=== PATIENT | male | born 1955 | race African-American/Black ===

== ENCOUNTER 2020-01-16 18:10 | Inpatient (IN) | payer MEDICAID ==
[~2020-01-16] VITALS: Ht 180.3 cm; Wt 107.8 kg
[2020-01-16] MEDS ORDERED: SCOT-TUSSI10 MG/5 ML PO (18:17)
[2020-01-16] MEDS ORDERED: XALATAN 0.0052.5 ML EACH EYE (18:18)
[2020-01-16] MEDS ORDERED: TIMOPTIC 0.5 % O5 ML EACH EYE (18:18)
[2020-01-16] MEDS ORDERED: [UNRECOGNIZED DRUG - OTHER] PO (18:18)
[2020-01-16] MEDS ORDERED: LIPITOR40 MG PO (18:18)
[2020-01-16] MEDS ORDERED: FERROUS SULFAT325 MG PO (18:19)
[2020-01-16] MEDS ORDERED: LOXAPINE50 MG PO (18:19)
[2020-01-16] MEDS ORDERED: ENSURE PO (18:19)
[2020-01-16] MEDS ORDERED: CLARITIN 10 MG10 MG PO (18:19)
[2020-01-16] MEDS ORDERED: NOVOLIN 70/30 110 ML SC ×3 (18:20)
[2020-01-16] MEDS ORDERED: NORVASC10 MG PO (18:21)
[2020-01-16] MEDS ORDERED: COREG25 MG PO (18:21)
[2020-01-16] MEDS ORDERED: FUROSEMIDE40 MG PO (18:21)
[2020-01-16] MEDS ORDERED: ASPIRIN81 MG PO (18:21)
[2020-01-16] MEDS ORDERED: SODIUM BICARBO650 MG PO (18:22)
[2020-01-16] MEDS ORDERED: CELLCEPT500 MG PO (18:22)
[2020-01-16] MEDS ORDERED: TACROLIMUS ANHYD1 MG PO (18:22)
[2020-01-16] MEDS ORDERED: ABSORBASE (18:22)
[2020-01-16 19:01] VITALS: BP 119/71
[2020-01-16 19:03] LABS: BASOPHILS 0 % (0-2); EOSINOPHILS 1.5 % (0-7); HEMATOCRIT 27.8 % (42.0-54.0); HEMOGLOBIN 8.4 g/dL (13.5-17.5); IMMATURE GRANULOCYTES 0.3 % (0-5); LYMPHOCYTES 21.4 % (15-50); MCH 21.7 pg (26.0-34.0); MCHC 30.2 g/dL (31.0-37.0); MCV 71.8 fL (80.0-100.0); NEUTROPHILS 67.8 % (40-80); PLATELET COUNT 178 10x3/uL (130-400); RBC 3.87 10x6/uL (4.20-6.10); WBC 3.2 10x3/uL (4.8-10.8)
[2020-01-16 19:19] LABS: APTT 28.1 SECONDS (22.8-39.4); CALC OSMOLALITY 277 mosm/kg (275-300); CALCIUM 8.2 mg/dL (8.5-10.1); CARBON DIOXIDE 27.9 mmol/L (21.0-32.0); CHLORIDE - SERUM 99 mmol/L (98-107); CREATININE - SERUM 3.3 mg/dL (0.6-1.3); GLUCOSE 166 mg/dL (74-106); INR 1.14 (0.85-1.17); POTASSIUM - SERUM 3.6 mmol/L (3.5-5.1); PROTIME 14.5 SECONDS (11.6-15.0); SODIUM 135 mmol/L (136-145); UREA NITROGEN 24 mg/dL (7-18); eGFR NON AFRICAN AMERICAN 20 mL/min (90-120)
[2020-01-16 19:34] LABS: ALBUMIN 3.1 g/dL (3.4-5.0); ALKALINE PHOSPHATASE 53 U/L (30-120); ALT (SGPT) 15 U/L (10-68); BILIRUBIN - TOTAL 0.55 mg/dL (0.2-1.3); CKMB 0.7 U/L (0.0-3.6); CREATINE KINASE 100 UL (21-232); MAGNESIUM - SERUM 1.7 mg/dL (1.8-2.4); PROTEIN - SERUM 6.3 g/dL (6.4-8.2); TROPONIN-I 0.036 ng/mL (0.000-0.060)
[2020-01-16 20:01] VITALS: BP 141/69
--- NOTE | 2020-01-16 20:43 | NUR ---
PT RESTING SUPINE POSITION, DENIES NEEDS. WILL CONTINUE TO MONITOR.
[2020-01-16 21:17] VITALS: BP 153/83
--- NOTE | 2020-01-16 21:20 | NUR ---
PROVIDED PT WITH TURKEY SANDWICH, SUGAR FREE JELLO, ICE WATER, AND DIET SPRITE. PT DENIES FURTHER NEEDS. NO SIGNS DISTRESS NOTED. WILL CONTINUE TO MONITOR.
[2020-01-16 22:00] VITALS: BP 157/84
--- NOTE | 2020-01-16 22:00 | NUR ---
PT ARRIVED TO ICU WITH GUARD. PATIENT PLEASANT, AND COOPERATIVE. MOBITZ II NOTED ON MONITOR. HEAD TO TOE ASSESSMENT COMPLETED. PT DENIES PAIN OR NEEDS AT THIS TIME. 02 DECRESED TO 90 APPLIED O2 AT 2 LITERS VIA NC. AFTER 5 MIN O2 SATURATIONS INCREASED TO 95%. RODRIGUEZ BROWNING AT BEDSIDE. WILL CONTINUE TO MONIOR.
[2020-01-16 22:34] VITALS: BP 177/93; BMI 33.2
[2020-01-16 23:00] VITALS: BP 172/81
[2020-01-17] VITALS (21 sets, daily range): BP systolic 140–193; BP diastolic 74–104; Ht 180.3 cm; Wt 107.8 kg
[2020-01-17 00:52] LABS: CKMB 0.4 U/L (0.0-3.6); CREATINE KINASE 85 UL (21-232); TROPONIN-I 0.034 ng/mL (0.000-0.060)
--- NOTE | 2020-01-17 01:00 | NUR ---
PT RESTING WITH EYES CLOSED. DENIES ANY NEEDS AT THIS TIME. PT IS ABLE TO SELF POSITION WITHOUT ANY DIFFICULTY. CALL LIGHT WITHIN REACH.
[2020-01-17 01:22] LABS: HEMATOCRIT 26.6 % (42.0-54.0)
--- NOTE | 2020-01-17 03:00 | NUR ---
REASSESSMENT COMPLETED. NO CHANGES NOTED. CALL LIGHT WITHIN REACH.
[2020-01-17 03:33] LABS: BASOPHILS 0 % (0-2); EOSINOPHILS 1.7 % (0-7); HEMATOCRIT 27.7 % (42.0-54.0); HEMOGLOBIN 8.3 g/dL (13.5-17.5); IMMATURE GRANULOCYTES 0.7 % (0-5); LYMPHOCYTES 23.8 % (15-50); MCH 21.3 pg (26.0-34.0); MCV 71.2 fL (80.0-100.0); MONOCYTES 7.3 % (2-11); NEUTROPHILS 66.5 % (40-80); PLATELET COUNT 148 10x3/uL (130-400); RBC 3.89 10x6/uL (4.20-6.10); RDW 18.6 % (11.5-14.5)
[2020-01-17 03:43] LABS: INR 1.25 (0.85-1.17); PROTIME 15.6 SECONDS (11.6-15.0)
[2020-01-17 03:52] LABS: APTT 34.2 SECONDS (22.8-39.4)
[2020-01-17 04:20] LABS: ALBUMIN 2.8 g/dL (3.4-5.0); ANION GAP 11.4 mmol/L (8-16); BILIRUBIN - TOTAL 0.46 mg/dL (0.2-1.3); CALCIUM 8.3 mg/dL (8.5-10.1); CARBON DIOXIDE 27.4 mmol/L (21.0-32.0); CREATININE - SERUM 3.9 mg/dL (0.6-1.3); MAGNESIUM - SERUM 1.8 mg/dL (1.8-2.4); PHOSPHOROUS 3.3 mg/dL (2.5-4.9); POTASSIUM - SERUM 3.8 mmol/L (3.5-5.1); PROTEIN - SERUM 5.8 g/dL (6.4-8.2)
[2020-01-17 04:25] LABS: % SATURATION 42 % (15-55); IRON 89 ug/dl (35-150); TOTAL IRON BIND CAPACITY 211 ug/dl (260-445); UNSAT IRON BIND CAPACITY 122 ug/dl (150-375)
--- NOTE | 2020-01-17 05:00 | NUR ---
VSS. GUARD AT BEDSIDE. DENIES NEEDS AT THIS TIME.
--- NOTE | 2020-01-17 07:25 | NUR ---
REPORT RECIEVED, SHIFT ASSESSMENT COMPLETE, PT IS ALERT AND ORIENTED, ON 2L NC WITH 97% O2 SAT. ALL PPP, VSS, GUARD AT BEDSIDE, CALL LIGHT IN REACH
--- NOTE | 2020-01-17 09:30 | NUR ---
SUSAN ALBA AT BEDSIDE, UPDATE GIVEN
--- NOTE | 2020-01-17 11:15 | NUR ---
REASSESSMENT COMPLETE, NO CHANGES NOTED, WILL CON'T TO MONITOR
[2020-01-17 11:55] LABS: HEMATOCRIT 25.5 % (42.0-54.0); HEMOGLOBIN 7.7 g/dL (13.5-17.5)
--- NOTE | 2020-01-17 13:00 | NUR ---
PT RESTING AT THIS TIME, VSS, CALL LIGHT IN REACH
--- NOTE | 2020-01-17 15:00 | NUR ---
REASSESSMENT COMPLETE, NO CHANGES NOTED, WILL CON'T TO MONITOR
--- NOTE | 2020-01-17 17:30 | NUR ---
DR. LOVE AT BEDSIDE, UPDATE GIVEN
[2020-01-17 18:35] LABS: HEMATOCRIT 27.8 % (42.0-54.0); HEMOGLOBIN 8.2 g/dL (13.5-17.5)
--- NOTE | 2020-01-17 19:00 | NUR ---
Head to toe assessment completed temp of 101.0 noted patient exhibits cough and states he has had a cough for a few days and has been taking Guaifenesin for the cough. States the cough is thick. States other inmates have also had simular cough symptoms. removed blankets, and decreased air in room. Pt hypertensive. paged Efe PERKINS. provided update on condition. stated to call renal. Paged Renal ARPN x3 times without return call. will continue with nursing interventions.
--- NOTE | 2020-01-17 21:00 | NUR ---
temp at 99.5. will continue with interventions. Pt continues to be hypertensive. no s/s of distress noted. guard at bedside.
--- NOTE | 2020-01-17 23:00 | NUR ---
Head to toe assessment completed. No changes noted. Call light within reach. Patient resting with eyes closed with guard at bedside.
[2020-01-18] VITALS (10 sets, daily range): BP systolic 148–188; BP diastolic 82–121
--- NOTE | 2020-01-18 03:00 | NUR ---
reassessment completed. pt denies any needs at this time.
[2020-01-18 03:34] LABS: BASOPHILS 0 % (0-2); EOSINOPHILS 2.1 % (0-7); HEMATOCRIT 26.9 % (42.0-54.0); HEMOGLOBIN 8.2 g/dL (13.5-17.5); IMMATURE GRANULOCYTES 0.6 % (0-5); LYMPHOCYTES 28.2 % (15-50); MCH 21.9 pg (26.0-34.0); MCHC 30.5 g/dL (31.0-37.0); MCV 71.7 fL (80.0-100.0); MONOCYTES 9.1 % (2-11); RBC 3.75 10x6/uL (4.20-6.10); WBC 3.3 10x3/uL (4.8-10.8)
[2020-01-18 03:35] LABS: PLATELET COUNT 182 10x3/uL (130-400)
[2020-01-18 03:44] LABS: ALBUMIN 2.9 g/dL (3.4-5.0); ANION GAP 11.3 mmol/L (8-16); BILIRUBIN - TOTAL 0.58 mg/dL (0.2-1.3); CALCIUM 8.5 mg/dL (8.5-10.1); CARBON DIOXIDE 27.7 mmol/L (21.0-32.0); MAGNESIUM - SERUM 1.8 mg/dL (1.8-2.4); PHOSPHOROUS 4.1 mg/dL (2.5-4.9); PROTEIN - SERUM 5.7 g/dL (6.4-8.2)
[2020-01-18 03:48] LABS: CREATININE - SERUM 5.1 mg/dL (0.6-1.3)
--- NOTE | 2020-01-18 05:00 | NUR ---
provided pt with bath basin, and bath supplies.
--- NOTE | 2020-01-18 07:20 | NUR ---
REPORT RECEIVED, SHIFT ASSESSMENT COMPLETE, PT IS ALERT AND ORIENTED, ON 2L NC WITH 97% O2 SAT. ALL PPP, VSS, CALL LIGHT IN REACH
--- NOTE | 2020-01-18 12:40 | NUR ---
Nutrition Follow-up: Noted plans for HD today. BP elevated. Diet: Diabetic Wt: 237.6# (01/16) Labs noted: K+ 4.0, Glu 111, PO4 4.1, Alb 2.9 Meds noted: Ferrous Sulfate, Pepcid, Humulin -Change to cardiac diabetic diet. -RD following.
--- NOTE | 2020-01-18 13:02 | MORECARE ---
CASE MANAGEMENT DISCHARGE SUMMARY PATIENT: DRISS HARRINGTON UNIT: [id number] ADM DATE: 01/16/20 AGE: 64 : 53 SEX: M ROOM/BED: D.2308 AUTHOR: ISAURA YOUNG PHYSICIAN: REFERRING PHYSICIAN: CHRISTINA MAGANA MD DATE OF SERVICE: 01/18/20 Discharge Plan Patient Name: DRISS HARRINGTON Facility: [facility]:[place] : 1955 Planned Disposition: Court\Law Enforcement Anticipated Discharge Date: Discharge Date: Expected LOS: Initial Reviewer: [email or web address] Initial Review Date: 01/16/2020 Generated: 01/18/20 2:01 pm Comments DCP- Discharge Planning Updated by [email or web address]: Elvi Moraes on 01/18/20 11:[address] Patient Name: DRISS HARRINGTON Admission Status: ER Accout number: [id number] Admission Date: 01-16-2020 : 1955 Admission Diagnosis:SYNCOPE AND COLLAPSE Attending: CHRISTINA MAGANA Current LOS: 2 Anticipated DC Date: Planned Disposition: Court\Law Enforcement Primary Insurance: MEDICAID SKILLED NURSING PENDING Discharge Planning Comments: PATIENT IS AN INMATE AT [facility] AND WILL BE RETURNING THERE UPON DISCHARGE. PATIENT HAS GUARD AT BEDSIDE. CM WILL CONTINUE TO FOLLOW AND ASSIST NEEDED WITH DISCHARGE PLANNING / NEEDS. Radial Arm Saw Operator: Elvi Moraes DCPIA - Discharge Planning Initial Assessment Updated by [email or web address]: Elvi Moraes on 01/18/20 12:54 pm * Is the patient Alert and Oriented? Yes * PCP [facility] * Pharmacy [facility] * Preadmission Environment Other * Other Environment ADC * Facility Name [facility] * ADLs Independent * List name and contact numbers for known caregivers / representatives who currently or will assist patient after discharge: [facility] * Verbal permission to speak to the caregivers and representatives has been obtained from the patient. N/A * Additional services required to return to the preadmission environment? No * Can the patient safely return to the preadmission environment? Yes * Has this patient been hospitalized within the prior 30 days at any hospital? No Patient Name: DRISS HARRINGTON Page [phone] at 1302 All edits/amendments must be made on the electronic document DICTATION DATE: 01/18/20 1301 PAPER COATING SUPERVISOR: DELVIS 01/18/20 1301 RPT#: [id number] DC DATE: STATUS: ADM IN [facility] [address] [place] [address] END OF REPORT
--- NOTE | 2020-01-18 13:47 | NUR ---
REPORT CALLED AND GIVEN TO ASHA ON MED 2.
--- NOTE | 2020-01-18 14:42 | NUR ---
PT RECIEVED FROM ICU ALERT AND ORIENTED X4. PT HAS GUARD IN TOW. NO S/S OF DISTRESS AT THIS TIME. BP-165/92 2L O2-96% TELE-93. PT BEING TRANSPORTED VIA WHEELCHAIR TO [facility]. WILL CONTINUE TO MONITOR.
--- NOTE | 2020-01-18 19:10 | NUR ---
BEDSIDE REPORT RECEIVED, PT CARE ASSUMED. INTRODUCED SELF AND WROTE NAME ON BOARD. PT LYING IN BED, WATCHING TV, AAOX4. DENIES ANY NEEDS AT THIS TIME. BED IN LOWEST POSITION, SR X2, CALL LIGHT WITHIN REACH. OFFICER AT BEDSIDE. WILL CONTINUE TO MONITOR.
[2020-01-19 00:40] VITALS: BP 147/82
[2020-01-19 05:04] LABS: BASOPHILS 0 % (0-2); EOSINOPHILS 1.2 % (0-7); HEMATOCRIT 28.3 % (42.0-54.0); HEMOGLOBIN 8.7 g/dL (13.5-17.5); IMMATURE GRANULOCYTES 0.5 % (0-5); LYMPHOCYTES 19.7 % (15-50); MCH 21.9 pg (26.0-34.0); MCHC 30.7 g/dL (31.0-37.0); MCV 71.1 fL (80.0-100.0); MONOCYTES 11.2 % (2-11); NEUTROPHILS 67.4 % (40-80); PLATELET COUNT 165 10x3/uL (130-400); RBC 3.98 10x6/uL (4.20-6.10); RDW 18.9 % (11.5-14.5); WBC 4.1 10x3/uL (4.8-10.8)
[2020-01-19 05:24] LABS: ALBUMIN 2.8 g/dL (3.4-5.0); ANION GAP 12.1 mmol/L (8-16); BILIRUBIN - TOTAL 0.75 mg/dL (0.2-1.3); CALCIUM 8.5 mg/dL (8.5-10.1); CARBON DIOXIDE 27.6 mmol/L (21.0-32.0); CREATININE - SERUM 4.3 mg/dL (0.6-1.3); MAGNESIUM - SERUM 1.8 mg/dL (1.8-2.4); PHOSPHOROUS 3.9 mg/dL (2.5-4.9); POTASSIUM - SERUM 3.7 mmol/L (3.5-5.1)
--- NOTE | 2020-01-19 08:00 | NUR ---
PT AWAKE AND ORIENTED, C/O SEVERE PAIN IN HIS RIGHT ARM D/T GOUT FLAIR UP (PTS WORDS). UPON EXAMINATION ARM IS SWOLLEN ENOUGH TO MAKE ARMBAND TOO TIGHT, CUT OFF. WILL REPLACE. SPOKE WITH SAURAV ALANIS ABOUT GOUT PAIN MEDICATION. SHE STATES SHE WILL ORDER. NO COMPLAINTS OR CONCERNS OTHER THAN THE STATED. GUARD AT BEDSIDE. CL IN REACH,SRX2, ALL QUESTIONS ANSWERED TO THE BEST OF MY ABILITY.
[2020-01-19 08:07] VITALS: BP 169/96
[2020-01-19] MEDS ORDERED: COREG12.5 MG PO (10:11)
--- NOTE | 2020-01-19 10:41 | NUR ---
INFOREMD PT THAT HE WOULD BE DISCHARGED BACK TO HIS FACILITY. PT IS AMICABLE BUT NOT THRILLED. CL IN REACH, SRX2, GUARD AT BEDSIDE.
--- NOTE | 2020-01-19 11:14 | MORECARE ---
CASE MANAGEMENT DISCHARGE SUMMARY PATIENT: DRISS HARRINGTON UNIT: [id number] ADM DATE: 01/16/20 AGE: 64 : 53 SEX: M ROOM/BED: D.2107 AUTHOR: ISAURA YOUNG PHYSICIAN: REFERRING PHYSICIAN: CHRISTINA MAGANA MD DATE OF SERVICE: 01/19/20 Discharge Plan Patient Name: DRISS HARRINGTON Facility: [facility]:[place] : 1955 Planned Disposition: Court\Law Enforcement Anticipated Discharge Date: Discharge Date: Expected LOS: Initial Reviewer: [email or web address] Initial Review Date: 01/16/2020 Generated: 01/19/20 12:13 pm Comments DCP- Discharge Planning Updated by [email or web address]: Azul Dean on 01/19/20 10:[address] PATIENT IS DISCHARGING BACK TO [facility], VERONICA PERKINS IS DOING DOC TO DOC. THE GUARDS WITH SET UP AND PROVIDE TRANSPORTATION. I HAVE FAXED ALL DC CLINICALS CM TO FOLLOW AND ASSIST NEEDED DCP- Discharge Planning Updated by [email or web address]: Elvi Moraes on 01/18/20 11:[address] Patient Name: DRISS HARRINGTON Admission Status: ER Accout number: [id number] Admission Date: 01-16-2020 : 1955 Admission Diagnosis:SYNCOPE AND COLLAPSE Attending: CHRISTINA MAGANA Current LOS: 2 Anticipated DC Date: Planned Disposition: Court\Law Enforcement Primary Insurance: MEDICAID ALF PENDING Discharge Planning Comments: PATIENT IS AN INMATE AT [facility] AND WILL BE RETURNING THERE UPON DISCHARGE. PATIENT HAS GUARD AT BEDSIDE. CM WILL CONTINUE TO FOLLOW AND ASSIST NEEDED WITH DISCHARGE PLANNING / NEEDS. Precision Lens Polisher: Elvi Moraes DCPIA - Discharge Planning Initial Assessment Updated by [email or web address]: Elvi Moraes on 01/18/20 12:54 pm * Is the patient Alert and Oriented? Yes * PCP ADC * Pharmacy ADC * Preadmission Environment Other * Other Environment ADC * Facility Name [facility] * ADLs Independent * List name and contact numbers for known caregivers / representatives who currently or will assist patient after discharge: [facility] * Verbal permission to speak to the caregivers and representatives has been obtained from the patient. N/A * Additional services required to return to the preadmission environment? No * Can the patient safely return to the preadmission environment? Yes * Has this patient been hospitalized within the prior 30 days at any hospital? No External Providers External Provider: [facility] Next Contact Date: Service Request Date: Service Type: Resolution: Reviewer: Comments: Last DP export: 01/18/20 12:02 p Patient Name: DRISS HARRINGTON Page [phone] at 1114 All edits/amendments must be made on the electronic document DICTATION DATE: 01/19/201112 SQL DATA ARCHITECT: DELVIS 01/19/20 1113 RPT#: [id number] DC DATE: STATUS: ADM IN [facility] [address] [place] [address] END OF REPORT
--- NOTE | 2020-01-19 12:33 | NUR ---
PATIENT SITTING IN BED CONSUMING NOON MEAL. PATIENT ALERT/ORIENTED, DISCHARGING TO HOME SOON. PAPER SCRUBS PROVIDED AT THIS TIME.
--- NOTE | 2020-01-19 12:38 | NUR ---
CALLED REPORT TO "MRS REED" AT FACILITY.
--- NOTE | 2020-01-19 14:34 | NUR ---
PT ESCORTED OUT VIA GUARD AND WHEELCAIR TO [facility].
--- NOTE | 2020-01-20 16:20 | MORECARE ---
CASE MANAGEMENT DISCHARGE SUMMARY PATIENT: DRISS HARRINGTON UNIT: [id number] ADM DATE: 01/16/20 AGE: 64 : 53 SEX: M ROOM/BED: D.2107 AUTHOR: ISAURA YOUNG PHYSICIAN: REFERRING PHYSICIAN: CHRISTINA MAGANA MD DATE OF SERVICE: 01/20/20 Discharge Plan Patient Name: DRISS HARRINGTON Facility: [facility]:[place] : 1955 Planned Disposition: Court\Law Enforcement Anticipated Discharge Date: Discharge Date: 01/19/2020 Expected LOS: 0 Initial Reviewer: [email or web address] Initial Review Date: 01/16/2020 Generated: 01/20/20 5:20 pm Comments DCP- Discharge Planning Updated by [email or web address]: Azul Dean on 01/19/20 10:[address] PATIENT IS DISCHARGING BACK TO [facility], VERONICA PERKINS IS DOING DOC TO DOC. THE GUARDS WITH SET UP AND PROVIDE TRANSPORTATION. I HAVE FAXED ALL DC CLINICALS CM TO FOLLOW AND ASSIST NEEDED DCP- Discharge Planning Updated by [email or web address]: Elvi Moraes on 01/18/20 11:[address] Patient Name: DRISS HARRINGTON Admission Status: ER Accout number: [id number] Admission Date: 01-16-2020 : 1955 Admission Diagnosis:SYNCOPE AND COLLAPSE Attending: CHRISTINA MAGANA Current LOS: 2 Anticipated DC Date: Planned Disposition: Court\Law Enforcement Primary Insurance: MEDICAID NURSING HOME PENDING Discharge Planning Comments: PATIENT IS AN INMATE AT [facility] AND WILL BE RETURNING THERE UPON DISCHARGE. PATIENT HAS GUARD AT BEDSIDE. CM WILL CONTINUE TO FOLLOW AND ASSIST NEEDED WITH DISCHARGE PLANNING / NEEDS. Molder Wax Ball: Elvi Moraes DCPIA - Discharge Planning Initial Assessment Updated by [email or web address]: Elvi Moraes on 01/18/20 12:54 pm * Is the patient Alert and Oriented? Yes * PCP [facility] * Pharmacy [facility] * Preadmission Environment Other * Other Environment [facility] * [facility] * ADLs Independent * List name and contact numbers for known caregivers / representatives who currently or will assist patient after discharge: [facility] * Verbal permission to speak to the caregivers and representatives has been obtained from the patient. N/A * Additional services required to return to the preadmission environment? No * Can the patient safely return to the preadmission environment? Yes * Has this patient been hospitalized within the prior 30 days at any hospital? No Last DP export: 01/19/20 10:14 a Patient Name: DRISS HARRINGTON Page [id number] at 1620 All edits/amendments must be made on the electronic document DICTATION DATE: 01/20/20 1620 TRIPLE VALVE MECHANIC: DELVIS 01/20/20 1620 RPT#: [id number] DC DATE:01/19/20 STATUS: DIS IN [facility] [address] [place] [address] END OF REPORT
== END 2020-01-19 14:47 | disposition home or self-care (01) | DRG 308 ==
LOC: D.ER 18:10 → D.ICU 21:11 → D.M2 01-18 14:06
PROVIDERS: Family Medicine; ADMIT Internal Medicine Nephrology; ATTEND Internal Medicine Nephrology
PROC: 5A1D70Z Performance of Urinary Filtration, Intermittent, Less than 6 Hours Per Day (ICD-10-PCS; principal; 2020-01-18)
DX: I44.1 Atrioventricular block, second degree (principal); N18.6 End stage renal disease; I12.0 Hypertensive chronic kidney disease with stage 5 chronic kidney disease or end stage renal disease; E87.1 Hypo-osmolality and hyponatremia; T86.12 Kidney transplant failure; N25.81 Secondary hyperparathyroidism of renal origin; R55 Syncope and collapse; D50.9 Iron deficiency anemia, unspecified; E83.42 Hypomagnesemia; E11.22 Type 2 diabetes mellitus with diabetic chronic kidney disease; Z99.2 Dependence on renal dialysis; D63.1 Anemia in chronic kidney disease; E11.40 Type 2 diabetes mellitus with diabetic neuropathy, unspecified